=== PATIENT | female | born 1955 | race Caucasian/White ===

== ENCOUNTER 2019-02-23 07:53 | Day surgery (SDC) | payer MEDICAID, OTHER ==
[~2019-02-23] VITALS: Ht 149.9 cm; Wt 64.9 kg
[~2019-02-23 07:53] MED LIST: BUPIVACAINE /PF 0.25% 30 ML VIAL INJ ONE; IOHEXOL 300 mgI/mL, 50 mL INFUS..BTL IV ONE; LIDOCAINE 1% 10 MG/ML, 20 ML MDV ONE; methylPREDNISolone ACETATE 40 MG/ML ONE
[2019-02-23] MEDS ORDERED: DIPHENHYDRAMINE INJ 50 MG/ML VIAL ONE (09:51)
[2019-02-23] MEDS: MIDAZOLAM HCL 5 MG/5 ML VIAL ONE ×2 (10:07→10:13)
[2019-02-23 10:37] VITALS: BP_SYST 120
== END 2019-02-23 18:35 | disposition home or self-care (01) ==
LOC: SDS 07:53 → SMU 07:53 → SDS 18:35
PROVIDERS: ATTEND Internal Medicine
DX: M54.5 Low back pain (principal); M51.9 Unspecified thoracic, thoracolumbar and lumbosacral intervertebral disc disorder; M47.816 Spondylosis without myelopathy or radiculopathy, lumbar region; M47.812 Spondylosis without myelopathy or radiculopathy, cervical region; G89.4 Chronic pain syndrome; I10 Essential (primary) hypertension; J45.909 Unspecified asthma, uncomplicated; Z79.899 Other long term (current) drug therapy
CPT/HCPCS: 62323; 99152; J1030; J2001; J2250; J3490; J7120; Q9967; 76000; J1200